=== PATIENT | female | born 1995 | race African-American/Black ===

== ENCOUNTER 2019-06-29 20:11 | Emergency (ER) | payer OTHER ==
[~2019-06-29] VITALS: Ht 165 cm; Wt 59.0 kg
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
[2019-06-29] MEDS ORDERED: IBUPROFEN 600600 M1 PO (21:42)
[2019-06-29] MEDS ORDERED: NORFLEX100 MG PO (21:42)
[2019-06-29 21:58] VITALS: BP 113/68
== END 2019-06-29 22:02 | disposition home or self-care (01) ==
LOC: ER 20:11
DX: S13.9XXA Sprain of joints and ligaments of unspecified parts of neck, initial encounter (principal); M25.522 Pain in left elbow; V89.2XXA Person injured in unspecified motor-vehicle accident, traffic, initial encounter; Y93.89 Activity, other specified; Y92.89 Other specified places as the place of occurrence of the external cause; Y99.8 Other external cause status